=== PATIENT | female | born 1940 | race Caucasian/White ===

== ENCOUNTER 2017-08-28 08:43 | Outpatient (CLI) | payer MEDICARE | END 2017-08-28 08:44 | disposition home or self-care (01) | LOC: BICMAMMO 08:43 | PROVIDERS: ATTEND Internal Medicine | DX: Z12.31 Encounter for screening mammogram for malignant neoplasm of breast (principal); Z80.3 Family history of malignant neoplasm of breast | CPT/HCPCS: 77063; 77067 ==

== ENCOUNTER 2018-08-31 13:12 | Outpatient (CLI) | payer MEDICARE, MEDICAID ==
--- NOTE | 2018-09-01 15:27 | MMO ---
Bilateral MAMMO Bilat Screen [facility]. CLINICAL HISTORY: Patient is 77 years old and is seen for screening. The patient has no personal history of cancer. VIEWS: The views performed were: bilateral craniocaudal with tomosynthesis and bilateral mediolateral oblique with tomosynthesis. FILMS COMPARED: The present examination has been compared to prior imaging studies performed at [facility] on 01/11/2016 and 08/28/2017, at [facility] on 11/01/2012, and at [facility] on 04/18/2011. MAMMOGRAM FINDINGS: There are scattered fibroglandular densities. There are stable benign appearing calcifications seen in both breasts. There are also vascular calcifications. There are no suspicious masses, suspicious calcifications, or new areas of architectural distortion. IMPRESSION: THERE IS NO MAMMOGRAPHIC EVIDENCE OF MALIGNANCY. A ROUTINE FOLLOW-UP MAMMOGRAM IN 1 YEAR IS RECOMMENDED. THE RESULTS OF THIS EXAM WERE SENT TO THE PATIENT. ACR BI-RADS Category 2 - Benign finding MAMMOGRAPHY NOTE: 1. A negative mammogram report should not delay a biopsy if a dominant of clinically suspicious mass is present. 2. Approximately 10% to 15% of breast cancers are not detected by mammography. 3. Adenosis and dense breasts may obscure an underlying neoplasm. Reported by: CECILIA MULTANI MD Electonically Signed: [id number]
== END 2018-08-31 13:13 | disposition home or self-care (01) ==
LOC: BICMAMMO 13:12
PROVIDERS: ATTEND Internal Medicine
DX: Z12.31 Encounter for screening mammogram for malignant neoplasm of breast (principal)
CPT/HCPCS: 77063; 77067

== ENCOUNTER 2020-11-02 12:46 | Outpatient (CLI) | payer MEDICARE, MEDICAID | END 2020-11-02 12:47 | disposition home or self-care (01) | LOC: BICMAMMO 12:46 | PROVIDERS: ATTEND Internal Medicine | DX: Z12.31 Encounter for screening mammogram for malignant neoplasm of breast (principal) | CPT/HCPCS: 77063; 77067 ==

== ENCOUNTER 2023-10-16 12:52 | Outpatient (CLI) | payer OTHER, MEDICAID | END 2023-10-16 12:53 | disposition home or self-care (01) | LOC: BICCT 12:52 | PROVIDERS: ATTEND Nurse Practitioner Family | DX: R26.9 Unspecified abnormalities of gait and mobility (principal); I67.89 Other cerebrovascular disease; J32.3 Chronic sphenoidal sinusitis | CPT/HCPCS: 70450 ==